=== PATIENT | female | born 1990 | race American Indian/Alaskan Native ===

== ENCOUNTER 2019-02-08 12:06 | Emergency (ER) | payer SELFPAY ==
[2019-02-08] MEDS ORDERED: VISTARIL ONE (16:13)
== END 2019-02-08 13:20 | disposition left against medical advice (07) ==
LOC: ED 12:06
DX: R11.2 Nausea with vomiting, unspecified (principal); Z53.21 Procedure and treatment not carried out due to patient leaving prior to being seen by health care provider
CPT/HCPCS: Q0177